=== PATIENT | female | born 1980 | race Caucasian/White ===

== ENCOUNTER 2016-11-23 10:55 | Emergency (ER) | payer BC, OTHER ==
[~2016-11-23] VITALS: Ht 152.4 cm; Wt 63.4 kg
[~2016-11-23 10:55] MED LIST: ALBU1AER9 INH; HYDR-5688 PO; IBUP-1459 PO
[2016-11-23 10:59] VITALS: TEMP 36.9; Ht 152.4 cm; Wt 63.4 kg
[2016-11-23] MEDS ORDERED: HYDROmorphone INJ 1 MG/ML SYR IV STA ×3 (11:09→14:25)
[2016-11-23] MEDS ORDERED: KETOROLAC TROMETHAMINE 30 MG/ML VIAL IV STA (11:09)
[2016-11-23] MEDS ORDERED: SODIUM CHLORIDE 0.9% 1000ML 1,000 ML IV STA ×2 (11:09→14:25)
[2016-11-23] MEDS ORDERED: ACETAMINOPHEN 500 MG TAB PO STA (11:09)
--- NOTE | 2016-11-23 11:10 | EMERGENCY ROOM VISIT NOTE ---
History Report prepared by Alexandra: Edwin Velarde Under the Supervision of: Dr. Flor Cuevas M.D. First contact with patient: 11:00 Chief Complaint: ABDOMINAL PAIN Stated Complaint: RT UPPER BELLY PAIN History of Present Illness The patient is a 36 year old female who presents to the Emergency Room with complaints of constant ache like and waxing/waning stabbing RUQ abdominal pain that began last night. She rates her current pain a 6/10 in severity. The patient still has her gallbladder, but she does not have her appendix. The patient is experiencing some nausea, without any vomiting. The patient states that she is currently menstruating. Source of History: patient Onset: last night Position: abdomen (RUQ) Symptom Intensity: 6/10 Quality: ache, stabbing Timing: constant, waxes/wanes Associated Symptoms: + nausea, No vomiting Review of Systems See HPI for pertinent positives & negatives. A total of 10 systems reviewed and were otherwise negative. Past Medical & Surgical Medical Problems: (1) Asthma (2) Migraines Surgical Problems: (1) History of - tubal ligation (2) History of right salpingo-oophorectomy (3) Hx of appendectomy (4) Tonsillectomy Family History Cancer Diabetes mellitus FH: heart disease FH: lung disease Hypertension Social History Smoking Status: Current Every Day Smoker Alcohol Use: none Drug Use: none Marital Status: Housing Status: lives with family Occupation Status: employed Current/Historical Medications Scheduled Albuterol (Proair Hfa), 1-2 PUFFS INH Q4HR PRN Fluticasone Prop/Salmeterol (Advair Diskus 100/50 60 Dose), 1 PUFF INH BID Gabapentin (Gabapentin), 300 MG PO TID Ondasetron Odt (Zofran Odt), 4 MG SL Q6H Allergies Coded Allergies: No Known Allergies (Unverified , 08/12/16) PT Physical Exam Vital Signs Date Time Temp Pulse Resp B/P Pulse Ox O2 Delivery O2 Flow Rate FiO2 11/23/16 15:30 58 16 89/62 98 11/23/16 13:12 64 16 117/64 96 11/23/16 10:59 36.9 73 18 128/80 100 Room Air Physical Exam CONSTITUTIONAL: Moderate painful distress HEENT: No icterus, moist mucous membranes NECK: No meningismus, trachea is midline. CARDIOVASCULAR: Regular rate, normal perfusion RESPIRATORY: Unlabored breathing. Clear to auscultation. GASTROINTESTINAL: Moderate RUQ tenderness GENITOURINARY: No flank tenderness MUSCULOSKELETAL: Full range of motion NEUROLOGIC: No acute gross focal deficits. PSYCHIATRIC: Normal affect SKIN: Normal for ethnicity. Medical Decision & Procedures ER Provider Diagnostic Interpretation: Radiology results are stated below per my review and radiologist interpretation. ABDOMINAL ULTRASOUND, RIGHT UPPER QUADRANT HISTORY: Right upper quadrant tenderness. COMPARISON: Abdominal ultrasound November 02, [address] of the abdomen and pelvis December 04, 2014. FINDINGS: Liver is sonographically normal. There is no biliary ductal dilatation. The gallbladder is normal. No gallstones are identified. The pancreas is within normal limits. There is no right hydronephrosis. IMPRESSION: No significant abnormality identified within the right upper quadrant. Electronically signed by: Brent Bill M.D. 11/23/2016 12:26 PM Dictated Date/Time: 11/23/2016 12:25 PM ABDOMEN AND PELVIS CT WITH IV AND ORAL CONTRAST CT DOSE: 274.63 mGy.cm HISTORY: Right upper quadrant abdominal pain. TECHNIQUE: Multiaxial CT images of the abdomen and pelvis were performed following the use of intravenous and oral contrast. COMPARISON STUDY: Abdomen and pelvis CT 12/04/2014. FINDINGS: The lung bases are clear. No pneumoperitoneum. No pneumatosis. No fractures within the visualized osseous structures. A 3 mm hypodense lesion within the left hepatic lobe. This is too small to characterize. The gallbladder, spleen, adrenal glands, kidneys, and pancreas are unremarkable. No retroperitoneal lymphadenopathy. The bladder, uterus, bilateral adnexa are unremarkable. No significant pelvic free fluid. No bowel wall thickening or obstruction. The appendix is surgically absent. IMPRESSION: No significant abnormality identified within the abdomen or pelvis. Electronically signed by: Reg Brito M.D. 11/23/2016 4:39 PM Dictated Date/Time: 11/23/2016 4:33 PM Laboratory Results 11/23/16 11:15 Red Blood Count 4.79, Mean Corpuscular Volume 90.4, Mean Corpuscular Hemoglobin 32.2, Mean Corpuscular Hemoglobin Concent 35.6, Mean Platelet Volume 8.5, Neutrophils (%) (Auto) 46.4, Lymphocytes (%) (Auto) 45.8, Monocytes (%) (Auto) 5.1, Eosinophils (%) (Auto) 1.9, Basophils (%) (Auto) 0.7, Neutrophils # (Auto) 3.80, Lymphocytes # (Auto) 3.76, Monocytes # (Auto) 0.42, Eosinophils # (Auto) 0.16, Basophils # (Auto) 0.06 11/23/16 11:15 Test 11/23/16 00:00 11/23/16 11:15 Urine Color YELLOW Urine Appearance CLEAR (CLEAR) Urine pH 6.0 (4.5-7.5) Urine Specific [place] 1.025 (1.000-1.030) Urine Protein 2+ (NEG) Urine Glucose (UA) NEG (NEG) Urine Ketones NEG (NEG) Urine Occult Blood 3+ (NEG) Urine Nitrite NEG (NEG) Urine Bilirubin NEG (NEG) Urine Urobilinogen NEG (NEG) Urine Leukocyte Esterase NEG (NEG) Urine RBC >30 /hpf (0-4) Urine WBC >30 /hpf (0-5) Urine Epithelial Cells >30 /lpf (0-5) Urine Bacteria 1+ (NEG) White Blood Count 8.21 K/uL (4.8-10.8) Red Blood Count 4.79 M/uL (4.2-5.4) Hemoglobin 15.4 g/dL (12.0-16.0) Hematocrit 43.3 % (37-47) Mean Corpuscular Volume 90.4 fL (80-100) Mean Corpuscular Hemoglobin 32.2 pg (25-34) Mean Corpuscular Hemoglobin Concent 35.6 g/dl (32-36) Platelet Count 251 K/uL (130-400) Mean Platelet Volume 8.5 fL (7.4-10.4) Neutrophils (%) (Auto) 46.4 % Lymphocytes (%) (Auto) 45.8 % Monocytes (%) (Auto) 5.1 % Eosinophils (%) (Auto) 1.9 % Basophils (%) (Auto) 0.7 % Neutrophils # (Auto) 3.80 K/uL (1.4-6.5) Lymphocytes # (Auto) 3.76 K/uL (1.2-3.4) Monocytes # (Auto) 0.42 K/uL (0.11-0.59) Eosinophils # (Auto) 0.16 K/uL (0-0.5) Basophils # (Auto) 0.06 K/uL (0-0.2) RDW Standard Deviation 45.4 fL (36.4-46.3) RDW Coefficient of Variation 13.6 % (11.5-14.5) Immature Granulocyte % (Auto) 0.1 % Immature Granulocyte # (Auto) 0.01 K/uL (0.00-0.02) Anion Gap 9.0 mmol/L (3-11) Est Creatinine Clear Calc Drug Dose 91.1 ml/min Estimated GFR () 127.0 Estimated GFR (Non- 109.6 BUN/Creatinine Ratio 22.8 (10-20) Calcium Level 8.5 mg/dl (8.5-10.1) Total Bilirubin 0.6 mg/dl (0.2-1) Direct Bilirubin 0.1 mg/dl (0-0.2) Aspartate Amino Transf (AST/SGOT) 11 U/L (15-37) Alanine Aminotransferase (ALT/SGPT) 13 U/L (12-78) Alkaline Phosphatase 47 U/L (45-117) Total Protein 6.5 gm/dl (6.4-8.2) Albumin 3.7 gm/dl (3.4-5.0) Lipase 183 U/L (73-393) Human Chorionic Gonadotropin, Qual NEG (NEG) Labs reviewed by ED physician. Medications Administered Medications (Trade) Dose Ordered Sig/Des Route Start Time Stop Time Status Last Admin Dose Admin Sodium Chloride (Nss 1000ml) 1,000 ml @ 0 mls/hr Q0M STAT IV 11/23/16 11:09 11/23/16 11:12 DC 11/23/16 11:28 999 MLS/HR Ketorolac Tromethamine (Toradol Inj) 30 mg NOW STAT IV 11/23/16 11:09 11/23/16 11:12 DC 11/23/16 11:27 30 MG Hydromorphone HCl 1 mg 1 mg PRN STAT IV 11/23/16 11:09 11/23/16 11:12 DC 11/23/16 11:27 1 MG Sodium Chloride (Nss 1000ml) 1,000 ml @ 0 mls/hr Q0M STAT IV 11/23/16 14:25 11/23/16 14:27 DC 11/23/16 14:32 999 MLS/HR Hydromorphone HCl (Dilaudid Inj) 1 mg STK-MED ONCE .ROUTE 11/23/16 14:25 11/23/16 14:26 DC 11/23/16 14:30 1 MG Albuterol Sulfate (Ventolin 0.083% 2.5MG/3ML Neb) 2.5 mg STK-MED ONCE INH 11/23/16 14:51 11/23/16 14:52 DC 11/23/16 14:54 2.5 MG Ondansetron HCl (Zofran Inj) 4 mg STK-MED ONCE .ROUTE 11/23/16 16:01 11/23/16 16:02 DC 11/23/16 16:04 4 MG ED Course 1100: Past medical records reviewed. The patient was evaluated in room C9. A complete history and physical examination was performed. 1109: Dilaudid Inj 1 mg IV, Toradol Inj 30 mg IV, Sodium Chloride 1000 ml @ 0 mls/hr Wide Open IV, Tylenol 1000 mg PO 1415: Upon reexamination the patient is resting. I discussed results and treatment plan with the patient. She verbalizes agreement and understanding. The patient is ready for discharge. 1425: The patient has changed her mind and does not want to go home anymore. She was scheduled for a CT scan. Dilaudid Inj 1 mg .ROUTE, Dilaudid Inj 1 mg IV , Sodium Chloride 1000 ml @ 0 mls/hr Wide Open IV, Dilaudid Inj 1 mg IV 1451: Albuterol Sulfate 2.5 mg INH 1601: Zofran Inj 4 mg .ROUTE 1655: Upon reexamination the patient is resting. She would like to come home. She declines further observation. I discussed results and treatment plan with the patient. She verbalizes agreement and understanding. The patient is ready for discharge. Medical Decision Differential diagnoses include but are not limited to; biliary/liver disease. 36-year-old presents into the emergency room for several hours of moderate to severe right upper quadrant tenderness without other associated complaints. She denies any previous history of pain related to eating. Moderate quadrant tenderness on exam subsequent right upper quadrant ultrasound was normal as well as labs. She continued to complain of pain and therefore was given repeat doses of opiates and as well as a CT scan of the abdomen and pelvis. All these results were within normal limits and on reexamination at 5 PM patient appeared comfortable with mild right upper quadrant tenderness no rib tenderness. She was offered observation for continued pain and declined but agrees to return the emergency room for any worsening or worrisome symptoms. She states she has a primary doctor and also declined help facilitating a follow-up appointment. Impression Primary Impression: RUQ abdominal pain Scribe Attestation The scribe's documentation has been prepared under my direction and personally reviewed by me in its entirety. I confirm that the note above accurately reflects all work, treatment, procedures, and medical decision making performed by me. Departure Information Dispostion Home / Self-Care Prescriptions Ondasetron Odt (ZOFRAN ODT) 4 Mg Tab 4 MG SL Q6H for Nausea, #20 TAB Prov: Flor Cuevas MD 11/23/16 Referrals Johnny Tamayo III, M.D. (PCP) Forms Call Back Authorization, HOME CARE DOCUMENTATION FORM, IMPORTANT VISIT INFORMATION, My [facility] Patient Instructions A Signature Page, ED Abd Pain Unkn Cause Fem
[2016-11-23] MEDS ORDERED: ADVIN10/60 INH (11:18)
[2016-11-23] MEDS ORDERED: GABA1CAP4 PO (11:18)
[2016-11-23 11:29] LABS: BASO % 0.7 %; BASO ABS # 0.06 K/uL (0-0.2); COMPLETE YES; EOS % 1.9 %; HEMATOCRIT 43.3 % (37-47); IG% 0.1 %; LYMPH % 45.8 %; LYMPH ABS # 3.76 K/uL (1.2-3.4); MEAN CELL VOLUME 90.4 fL (80-100); MEAN CORPUSCULAR HEMOGLOBIN 32.2 pg (25-34); MEAN CORPUSCULAR HGB CONC 35.6 g/dl (32-36); MEAN PLATELET VOLUME 8.5 fL (7.4-10.4); MONO % 5.1 %; NEUT % 46.4 %; PLATELET COUNT 251 K/uL (130-400); RED BLOOD COUNT 4.79 M/uL (4.2-5.4); WHITE BLOOD COUNT 8.21 K/uL (4.8-10.8)
[2016-11-23 11:36] LABS: MANUAL MICROSCOPIC REQUIRED? YES; URINE APPEARANCE CLEAR (CLEAR); URINE BILIRUBIN NEG (NEG); URINE COLOR YELLOW; URINE NITRITE NEG (NEG); UROBILINOGEN NEG (NEG)
[2016-11-23 11:39] LABS: REVIEW REQ? YES
[2016-11-23 11:41] LABS: SULFASALICYLIC ACID POS (NEG); URINE SPECIFIC GRAVITY 1.025 (1.000-1.030)
[2016-11-23 11:42] LABS: URINE RBC >30 /hpf (0-4)
[2016-11-23 11:43] LABS: URINE BACTERIA 1+ (NEG); URINE WBC >30 /hpf (0-5)
[2016-11-23 11:51] LABS: BUN/CREATININE RATIO 22.8 (10-20); CALCIUM 8.5 mg/dl (8.5-10.1); CREATININE 0.71 mg/dl (0.60-1.20); POTASSIUM 3.9 mmol/L (3.5-5.1); PREG INTERNAL NEGATIVE QC NEG CLEAR BACKGROUND; PREG INTERNAL POSITIVE QC POS CONTROL LINE
--- NOTE | 2016-11-23 12:28 | DIAGNOSTIC IMAGING REPORT ---
ABDOMINAL ULTRASOUND, RIGHT UPPER QUADRANT HISTORY: Right upper quadrant tenderness. COMPARISON: Abdominal ultrasound November 02, [address] of the abdomen and pelvis December 04, 2014. FINDINGS: Liver is sonographically normal. There is no biliary ductal dilatation. The gallbladder is normal. No gallstones are identified. The pancreas is within normal limits. There is no right hydronephrosis. IMPRESSION: No significant abnormality identified within the right upper quadrant. Electronically signed by: Brent Bill M.D. 11/23/2016 12:26 PM Dictated Date/Time: 11/23/2016 12:25 PM
[2016-11-23] MEDS ORDERED: ONDA4TAB10 SL (14:10)
[2016-11-23] MEDS ORDERED: HYDROmorphone INJ 1 MG/ML SYR ONE (14:25)
[2016-11-23] MEDS ORDERED: OPTIRAY 320 IV PRN (14:30)
[2016-11-23] MEDS ORDERED: ALBUTEROL 0.083% NEBU SOLN 3 ML VIAL INH ONE (14:51)
[2016-11-23] MEDS ORDERED: ONDANSETRON INJ 2 MG/ML 2 ML VIAL ONE (16:01)
--- NOTE | 2016-11-23 16:41 | DIAGNOSTIC IMAGING REPORT ---
ABDOMEN AND PELVIS CT WITH IV AND ORAL CONTRAST CT DOSE: 274.63 mGy.cm HISTORY: Right upper quadrant abdominal pain. TECHNIQUE: Multiaxial CT images of the abdomen and pelvis were performed following the use of intravenous and oral contrast. COMPARISON STUDY: Abdomen and pelvis CT 12/04/2014. FINDINGS: The lung bases are clear. No pneumoperitoneum. No pneumatosis. No fractures within the visualized osseous structures. A 3 mm hypodense lesion within the left hepatic lobe. This is too small to characterize. The gallbladder, spleen, adrenal glands, kidneys, and pancreas are unremarkable. No retroperitoneal lymphadenopathy. The bladder, uterus, bilateral adnexa are unremarkable. No significant pelvic free fluid. No bowel wall thickening or obstruction. The appendix is surgically absent. IMPRESSION: No significant abnormality identified within the abdomen or pelvis. Electronically signed by: Rge Brito M.D. 11/23/2016 4:39 PM Dictated Date/Time: 11/23/2016 4:33 PM
[2016-11-23 17:00] VITALS: BP 113/77; PULSE 71; O2SAT 98
== END 2016-11-23 17:20 | disposition home or self-care (01) ==
LOC: C.EDB 10:56 → C.EDC 17:20
DX: R10.11 Right upper quadrant pain (principal); J45.909 Unspecified asthma, uncomplicated; Z98.51 Tubal ligation status; Z90.89 Acquired absence of other organs; Z98.890 Other specified postprocedural states; Z83.3 Family history of diabetes mellitus; Z82.49 Family history of ischemic heart disease and other diseases of the circulatory system; Z80.9 Family history of malignant neoplasm, unspecified; F17.200 Nicotine dependence, unspecified, uncomplicated

== ENCOUNTER 2017-11-30 13:03 | Emergency (ER) | payer BC, OTHER ==
[~2017-11-30] VITALS: Ht 152.4 cm; Wt 76.0 kg
[~2017-11-30 13:03] MED LIST changes: +ADVIN10/60 INH; +GABA1CAP4 PO; -HYDR-5688 PO; -IBUP-1459 PO
[2017-11-30 13:12] VITALS: TEMP 37; Ht 152.4 cm; Wt 76.0 kg
[2017-11-30] MEDS ORDERED: ALBUT/IPRATROP 3MG/0.5MG NEB 3 ML VIAL INH STA ×3 (14:24→15:45)
[2017-11-30] MEDS ORDERED: METHYLPREDNISOLONE 125 MG VIAL IV STA (14:24)
[2017-11-30] MEDS ORDERED: VNTHFA/IN INH (14:33)
[2017-11-30 14:47] VITALS: O2SAT 100
[2017-11-30 14:54] LABS: BASO % 0.6 %; BASO ABS # 0.05 K/uL (0-0.2); EOS % 1.3 %; EOS ABS # 0.12 K/uL (0-0.5); HEMATOCRIT 41.1 % (37-47); HEMOGLOBIN 14.2 g/dL (12.0-16.0); IG# 0.02 K/uL (0.00-0.02); LYMPH % 32.7 %; LYMPH ABS # 2.91 K/uL (1.2-3.4); MEAN CORPUSCULAR HEMOGLOBIN 32.1 pg (25-34); MEAN CORPUSCULAR HGB CONC 34.5 g/dl (32-36); MEAN PLATELET VOLUME 8.4 fL (7.4-10.4); MONO % 7.5 %; MONO ABS # 0.67 K/uL (0.11-0.59); NEUT % 57.7 %; NEUT ABS # 5.14 K/uL (1.4-6.5); PLATELET COUNT 214 K/uL (130-400); RED CELL DISTRIBUTION WIDTH CV 14.3 % (11.5-14.5); RED CELL DISTRIBUTION WIDTH SD 48.3 fL (36.4-46.3); WHITE BLOOD COUNT 8.91 K/uL (4.8-10.8)
[2017-11-30 15:11] LABS: CALCIUM 8.2 mg/dl (8.5-10.1); CREATININE 0.8 mg/dl (0.60-1.20)
[2017-11-30] MEDS ORDERED: BENZONATATE 100MG CAP PO ONE (15:30)
[2017-11-30 16:01] VITALS: BP 103/69; PULSE 76; O2SAT 97
--- NOTE | 2017-11-30 16:16 | EMERGENCY ROOM VISIT NOTE ---
History Report prepared by Alexandra: Joaquin Washington Under the Supervision of: Dr. Brown Shaw M.D. First contact with patient: 14:17 Chief Complaint: RESPIRATORY PROBLEMS Stated Complaint: ASTHMA,CHEST HURTS Nursing Triage Summary: pt to the ED c/o trouble breathing and chest pain since last night + cough that is nonproductive no resp distress History of Present Illness The patient is a 37 year old female who presents to the Emergency Room with complaints of persistent shortness of breath starting last night. The patient notes that she has a history of asthma, and she states that this feels similar to her asthma exacerbations in the past. The patient states that she is having a stabbing pain in her chest worsened with deep inspiration. The patient notes that she has been taking her nebulizers, and she states that she has never been intubated for her asthma, though she was in the ICU for it 5-6 years ago. The patient denies any fevers or chills, and hemoptysis. She states that she has been coughing up mucous, though it has gotten less productive throughout the day. She denies any recent steroid use recently, and she denies any chance of . Source of History: patient Onset: last night Position: other (global) Quality: other (shortness of breath) Timing: other (persistent) Associated Symptoms: + cough, + chest pain, No fevers, No chills Review of Systems See HPI for pertinent positives and negatives. A total of ten systems were reviewed and were otherwise negative. Past Medical & Surgical Medical Problems: (1) Asthma (2) Migraines Surgical Problems: (1) History of - tubal ligation (2) History of right salpingo-oophorectomy (3) Hx of appendectomy (4) Tonsillectomy Family History Cancer Diabetes mellitus FH: heart disease FH: lung disease Hypertension Social History Smoking Status: Current Every Day Smoker Alcohol Use: none Drug Use: none Marital Status: Housing Status: lives with family Occupation Status: employed Current/Historical Medications Scheduled Gabapentin (Gabapentin), 300 MG PO TID Prednisone (Prednisone), 50 MG PO DAILY Scheduled PRN Albuterol (Ventolin Hfa), 2 PUFFS INH QID PRN for Shortness of Breath Albuterol Hfa (Ventolin Hfa), 2-4 PUFFS INH Q6H PRN for SOB/Wheezing Allergies Coded Allergies: No Known Allergies (Unverified , 11/30/17) PT Physical Exam Vital Signs Date Time Temp Pulse Resp B/P (MAP) Pulse Ox O2 Delivery O2 Flow Rate FiO2 11/30/17 16:01 76 20 103/69 97 Room Air 11/30/17 15:15 89 11/30/17 14:47 100 Room Air 11/30/17 14:47 100 Room Air 11/30/17 14:46 70 16 118/69 100 Room Air 11/30/17 13:12 37.0 84 16 124/75 96 Physical Exam GENERAL: Awake, alert, well-appearing, in no distress HENT: Normocephalic, Atraumatic. no hemotympanum bilaterally, barrientos sign negative bilaterally. Oropharynx unremarkable. EYES: Normal conjunctiva. Sclera non-icteric. PERRL bilaterally. EOMI bilaterally. NECK: Supple. No nuchal rigidity. FROM. No JVD. No C-spine tenderness. RESPIRATORY: Diffuse expiratory wheezes bilaterally. CARDIAC: Regular rate, normal rhythm. Extremities warm and well perfused. Equal palpable radial pulses to the bilateral upper extremities. Equal palpable DP pulses to the bilateral lower extremities. ABDOMEN: Soft, non-distended. No tenderness to palpation. No rebound or guarding. No masses. Rovsig Negative. RECTAL: Deferred. MUSCULOSKELETAL: Chest examination reveals no tenderness. The back is symmetrical on inspection without obvious abnormality. There is no CVA tenderness to palpation. No joint edema. LOWER EXTREMITIES: Calves are equal size bilaterally and non-tender. No edema. No discoloration. NEURO: Normal sensorium. No sensory or motor deficits noted. No pronator drift. No facial droop. No dysarthria. SKIN: No rash or jaundice noted. Medical Decision & Procedures Laboratory Results 11/30/17 14:43 Red Blood Count 4.42, Mean Corpuscular Volume 93.0, Mean Corpuscular Hemoglobin 32.1, Mean Corpuscular Hemoglobin Concent 34.5, Mean Platelet Volume 8.4, Neutrophils (%) (Auto) 57.7, Lymphocytes (%) (Auto) 32.7, Monocytes (%) (Auto) 7.5, Eosinophils (%) (Auto) 1.3, Basophils (%) (Auto) 0.6, Neutrophils # (Auto) 5.14, Lymphocytes # (Auto) 2.91, Monocytes # (Auto) 0.67, Eosinophils # (Auto) 0.12, Basophils # (Auto) 0.05 11/30/17 14:43 Test 11/30/17 14:43 White Blood Count 8.91 K/uL (4.8-10.8) Red Blood Count 4.42 M/uL (4.2-5.4) Hemoglobin 14.2 g/dL (12.0-16.0) Hematocrit 41.1 % (37-47) Mean Corpuscular Volume 93.0 fL (80-100) Mean Corpuscular Hemoglobin 32.1 pg (25-34) Mean Corpuscular Hemoglobin Concent 34.5 g/dl (32-36) Platelet Count 214 K/uL (130-400) Mean Platelet Volume 8.4 fL (7.4-10.4) Neutrophils (%) (Auto) 57.7 % Lymphocytes (%) (Auto) 32.7 % Monocytes (%) (Auto) 7.5 % Eosinophils (%) (Auto) 1.3 % Basophils (%) (Auto) 0.6 % Neutrophils # (Auto) 5.14 K/uL (1.4-6.5) Lymphocytes # (Auto) 2.91 K/uL (1.2-3.4) Monocytes # (Auto) 0.67 K/uL (0.11-0.59) Eosinophils # (Auto) 0.12 K/uL (0-0.5) Basophils # (Auto) 0.05 K/uL (0-0.2) RDW Standard Deviation 48.3 fL (36.4-46.3) RDW Coefficient of Variation 14.3 % (11.5-14.5) Immature Granulocyte % (Auto) 0.2 % Immature Granulocyte # (Auto) 0.02 K/uL (0.00-0.02) Anion Gap 5.0 mmol/L (3-11) Est Creatinine Clear Calc Drug Dose 87.7 ml/min Estimated GFR () 109.2 Estimated GFR (Non- 94.2 BUN/Creatinine Ratio 11.2 (10-20) Calcium Level 8.2 mg/dl (8.5-10.1) Laboratory results reviewed by me Medications Administered Medications (Trade) Dose Ordered Sig/Des Route Start Time Stop Time Status Last Admin Dose Admin Albuterol/ Ipratropium (Duoneb) 3 ml ONE STAT INH 11/30/17 14:24 11/30/17 14:30 DC 11/30/17 14:43 3 ML Methylprednisolone Sodium Succinate (Solu-Medrol IV) 125 mg NOW STAT IV 11/30/17 14:24 11/30/17 14:30 DC 11/30/17 14:43 125 MG Albuterol/ Ipratropium (Duoneb) 3 ml ONE STAT INH 11/30/17 15:45 11/30/17 15:49 DC 11/30/17 15:57 3 ML ECG Indication: SOB/dyspnea Rate (beats per minute): 74 Rhythm: sinus rhythm Findings: no acute ischemic change, no ectopy, other ([place], QRS, and QTc intervals within normal limits. No ST elevation or depressions.) ED Course 1417: The patient was evaluated in room B9. A complete history and physical exam was performed. 1424: Solu-Medrol 125mg IV, DuoNeb 3ml INH 1514: Pre-DuoNeb peak flow was 180, and post-DuoNeb her peak flow was 270. I reevaluated the patient, and her wheezing has improved, though her cough is getting worse. She is going to get another treatment, and then she will be reevaluated again. 1545: DuoNeb 3ml INH 1616: I reevaluated the patient, and her vital signs are stable, and she received her second DuoNeb treatment. She states that she is feeling completely better and has to go home since her children are starting to act up. I discussed her labs with her and they are within normal limits. I offered to get a chest x-ray to the patient, but she states that she cannot wait for it. She currently is has having equal breath sounds bilaterally and scant wheezing bilaterally. The patient was discharged with a refill prescription of her albuterol inhaler and prednisone. She asked for cough syrup with codeine for her cough, and I told her that I was unable to prescribe this at this time due to the potential for narcotic abuse and dependency. She seemed upset with this and said that he previous times that she has been here she has gotten this prescription. I stated that I cant write this prescription for her, and she will be given albuterol and prednisone. I offered a prescription for Tessalon Perles, but she declined. Medical Decision Pre-DuoNeb peak flow was 180, and post-DuoNeb her peak flow was 270. I reevaluated the patient, and her wheezing has improved, though her cough is getting worse. She is going to get another treatment, and then she will be reevaluated again. S/p 2nd duoneb I reevaluated the patient, and her vital signs are stable, and she received her second DuoNeb treatment. She states that she is feeling completely better and has to go home since her children are starting to act up. I discussed her labs with her and they are within normal limits. I offered to get a chest x-ray to the patient, but she states that she cannot wait for it. She currently is has having equal breath sounds bilaterally and scant wheezing bilaterally. The patient was discharged with a refill prescription of her albuterol inhaler and prednisone. She asked for cough syrup with codeine for her cough, and I told her that I was unable to prescribe this at this time due to the potential for narcotic abuse and dependency. She seemed upset with this and said that he previous times that she has been here she has gotten this prescription. I stated that I cant write this prescription for her , and she will be given albuterol and prednisone. I offered a prescription for Tessalon Perles, but she declined. Medication Reconcilliation Current Medication List: was personally reviewed by me Blood Pressure Screening Patient's blood pressure: Normal blood pressure Impression Primary Impression: Asthma exacerbation Scribe Attestation The scribe's documentation has been prepared under my direction and personally reviewed by me in its entirety. I confirm that the note above accurately reflects all work, treatment, procedures, and medical decision making performed by me. The chart was completed utilizing [employer] Speech voice recognition software. Grammatical errors, random word insertions, pronoun errors, and incomplete sentences are an occasional consequence of this system due to software limitations, ambient noise, and hardware issues. Any formal questions or concerns about the content, text, or information contained within the body of this dictation should be directly addressed to the physician for clarification. Departure Information Dispostion Home / Self-Care Prescriptions Prednisone (Prednisone) 50 Mg Tab 50 MG PO DAILY for 5 Days, #5 TAB Prov: Brown Shaw M.D. 11/30/17 Albuterol (Ventolin Hfa) 60 Puffs/5400 Mcg Aers 2 PUFFS INH QID Y for Shortness of Breath for 5 Days, #1 INHALER Prov: Brown Shaw M.D. 11/30/17 Referrals Johnny Tamayo III, M.D. (PCP) Forms HOME CARE DOCUMENTATION FORM, IMPORTANT VISIT INFORMATION, WORK / SCHOOL INSTRUCTIONS Patient Instructions Asthma - [facility], [facility] Problem Qualifiers Primary Impression: Asthma exacerbation Asthma severity: moderate Asthma persistence: unspecified Qualified Codes: J45.901 - Unspecified asthma with (acute) exacerbation
[2017-11-30] MEDS ORDERED: PRED50TA PO (16:20)
[2017-11-30] MEDS ORDERED: PRVHFAIN INH (16:20)
== END 2017-11-30 16:30 | disposition home or self-care (01) ==
LOC: C.EDB 13:04
DX: J45.901 Unspecified asthma with (acute) exacerbation (principal); G43.909 Migraine, unspecified, not intractable, without status migrainosus; Z80.9 Family history of malignant neoplasm, unspecified; Z83.3 Family history of diabetes mellitus; Z82.49 Family history of ischemic heart disease and other diseases of the circulatory system; Z83.6 Family history of other diseases of the respiratory system; F17.210 Nicotine dependence, cigarettes, uncomplicated; Z79.899 Other long term (current) drug therapy

== ENCOUNTER 2021-03-16 19:41 | Observation (INO) ==
[2021-03-16] MEDS ORDERED: methylPREDNISolone 125 MG/2 ML VIAL IV STA (19:55)
[2021-03-16] MEDS ORDERED: ALBUT/IPRATROP 3MG/0.5MG NEB 3 ML VIAL NEB ONE (19:55)
[2021-03-16] MEDS ORDERED: SODIUM CHLORIDE 0.9% 1000ML 1,000 ML IV ONE (19:55)
--- NOTE | 2021-03-16 20:14 | XRay Report ---
XR chest 1V portable HISTORY: 40 years-old Female sob acute shortness of breath COMPARISON: Chest radiographs 04/06/2016 TECHNIQUE: Portable AP view of the chest FINDINGS: Cardiomediastinal and hilar silhouettes are within normal limits. No pneumothorax, pleural effusion, airspace consolidation or overt pulmonary edema. Bones of the chest appear grossly intact. IMPRESSION: No acute process. ACT 112: Negative or not required by law. The above report was generated using voice recognition software. It may contain grammatical, syntax o r spelling errors. Electronically signed by: Valentino Mayo M.D. 03/16/2021 8:13 PM
[2021-03-16 20:20] LABS: Basophils # (auto) 0.04 K/uL (0-0.2); Basophils % (auto) 0.4 %; Eosinophils # (auto) 0.19 K/uL (0-0.5); Eosinophils % (auto) 1.7 %; Hematocrit (blood only) 43.7 % (37-47); Hemoglobin 15.7 g/dL (12.0-16.0); Immature Granulocytes # (auto) 0.03 K/uL (0.00-0.02); Immature Granulocytes % (auto) 0.3 %; Lymphocytes # (auto) 3.72 K/uL (1.2-3.4); Lymphocytes % (auto) 32.6 %; Mean Corpuscular Hemoglobin 33.8 pg (25-34); Mean Corpuscular Hgb Conc 35.9 g/dL (32-36); Mean Platelet Volume 8.3 fL (7.4-10.4); Monocytes # (auto) 0.79 K/uL (0.11-0.59); Monocytes % (auto) 6.9 %; Neutrophils # (auto) 6.65 K/uL (1.4-6.5); Neutrophils % (auto) 58.1 %; Platelet Count 343 K/uL (130-400); RDW Coefficient of Variation 13.5 % (11.5-14.5); RDW Standard Deviation 46.4 fL (36.4-46.3); Red Blood Count 4.65 M/uL (4.2-5.4); White Blood Count 11.42 K/uL (4.8-10.8)
[2021-03-16 20:36] LABS: BUN Creatinine Ratio 12.3 (10-20); Calcium 8.3 mg/dl (8.5-10.1); Creatinine Clr Calc Pharmacy 97.1 ml/min; Est GFR (African American) 111.9; Est GFR (Non-African American) 96.6; Potassium 3.5 mmol/L (3.5-5.1)
[2021-03-16 20:55] LABS: Influenza A virus by PCR Negative (Neg); Influenza B virus by PCR Negative (Neg); RSV by PCR Negative (Neg); SARS CoV2 RNA(COVID-19) InHosp NEGATIVE (Negative)
--- NOTE | 2021-03-17 00:37 | Emergency Department Note ---
History of Present Illness General Chief Complaint: Asthma Stated Complaint: ASTHMA, SOB Time Seen by Provider: 03/16/21 19:49 History of Present Illness Provider complaint: "asthma attack", shortness of breath and wheezing Onset (ago): week(s) 1 Severity: severe and worse than usual Associated symptoms: productive cough Treatments Prior to Arrival: inhaled bronchodilator and none (Oral steroid) 40-year-old female presents emergency department for difficulty breathing. Patient reports she feels like she is having asthma attack. Patient states she has a long history of asthma. Patient does report that she has been admitted to the ICU for her asthma in the past. Patient denies needing intubation in the past for asthma. Patient has any fever. She denies any hemoptysis. Patient d oes report cough. Patient states she has been trying to deal with the steroid over the last week. Patient states she saw her PCP was placed on a prednisone taper but that did not help so her PCP started her back on prednisone again. She states that has not been helping and her home inhalers have not been helping. Home Medications Medication Instructions Recorded Confirmed Type albuterol sulfate 2 - 4 puff INHALATION Q4H PRN 03/16/21 03/16/21 History fluticasone propion-salmeterol 1 inh INHALATION BID 03/16/21 03/16/21 History [Advair Diskus] ibuprofen 800 mg PO Q6H PRN 03/16/21 03/16/21 History ipratropium-albuterol 3 ml INHALATION Q4H PRN 03/16/21 03/16/21 History ipratropium-albuterol [Combivent 1 puff INHALATION QID 03/16/21 03/16/21 History Respimat] montelukast 10 mg PO PM 03/16/21 03/16/21 History tiotropium bromide [Spiriva with 1 cap INHALATION PM 03/16/21 03/16/21 History HandiHaler] Allergies Allergy/AdvReac Type Severity Reaction Status Date / Time No Known Allergies Allergy Unverified 03/16/21 21:11 Past Med/Surg History Medical History (Updated 03/17/21 @ 00:38 by [facility]) Acute asthma exacerbation Migraine No pertinent family history Surgical History (Updated 03/17/21 @ 00:31 by [facility]) No pertinent past surgical history Social History (System 05/01/20 @ 09:04 by Autumn Watt) Smoking Status: Never smoker Preferred Language: Bengali Feels Safe at Home: Yes Review of Systems A total of 10 systems reviewed and were otherwise negative Physical Exam Vital Signs Vital Signs - 24 hr 03/16/21 19:41 03/16/21 19:44 03/16/21 20:17 Temperature 36.8 C 36.4 C L Temperature Source Oral Temporal Artery Scan Pulse Rate 100 H 98 H Pulse Rate [Left Radial] 88 Pulse Rate from SpO2 Sensor Pulse Rhythm Regular Pulse Rhythm [Left Radial] Pulse Strength [Left Radial] Respiratory Rate 20 20 28 H Respiratory Effort / Characteristics Non-Labored Spontaneous Short of Breath Respiratory Depth Normal Normal Respiratory Pattern Regular Blood Pressure 134/86 Blood Pressure Mean 102 Blood Pressure Position Sitting Pulse Oximetry 99 97 109 H Oxygen Delivery Method Nebulizer Room Air Room Air Fraction of Inspired Oxygen 95 Sepsis Recent Fever Within 48 Hours No Sepsis New/Unexplained Change in Mental Status No Sepsis Action Taken by Nursing No Action Required 03/16/21 20:34 03/16/21 20:40 03/16/21 20:50 Temperature Temperature Source Pulse Rate 99 H 90 96 H Pulse Rate [Left Radial] Pulse Rate from SpO2 Sensor 98 H 89 98 H Pulse Rhythm Pulse Rhythm [Left Radial] Pulse Strength [Left Radial] Respiratory Rate 23 23 17 Respiratory Effort / Characteristics Respiratory Depth Respiratory Pattern Blood Pressure Blood Pressure Mean Blood Pressure Position Pulse Oximetry 100 99 99 Oxygen Delivery Method Fraction of Inspired Oxygen Sepsis Recent Fever Within 48 Hours Sepsis New/Unexplained Change in Mental Status Sepsis Action Taken by Nursing 03/16/21 21:00 03/16/21 21:03 03/16/21 21:10 Temperature Temperature Source Pulse Rate 93 H 86 Pulse Rate [Left Radial] Pulse Rate from SpO2 Sensor 93 H 89 Pulse Rhythm Pulse Rhythm [Left Radial] Pulse Strength [Left Radial] Respiratory Rate 20 26 H Respiratory Effort / Characteristics Respiratory Depth Respiratory Pattern Blood Pressure Blood Pressure Mean Blood Pressure Position Pulse Oximetry 99 99 99 Oxygen Delivery Method Nebulizer Fraction of Inspired Oxygen Sepsis Recent Fever Within 48 Hours Sepsis New/Unexplained Change in Mental Status Sepsis Action Taken by Nursing 03/16/21 21:20 03/16/21 21:30 03/16/21 21:40 Temperature Temperature Source Pulse Rate 87 88 83 Pulse Rate [Left Radial] Pulse Rate from SpO2 Sensor 88 87 84 Pulse Rhythm Pulse Rhythm [Left Radial] Pulse Strength [Left Radial] Respiratory Rate 22 17 19 Respiratory Effort / Characteristics Respiratory Depth Respiratory Pattern Blood Pressure 144/84 H Blood Pressure Mean 104 Blood Pressure Position Pulse Oximetry 100 100 99 Oxygen Delivery Method Fraction of Inspired Oxygen Sepsis Recent Fever Within 48 Hours Sepsis New/Unexplained Change in Mental Status Sepsis Action Taken by Nursing 03/16/21 21:50 03/16/21 22:00 03/17/21 00:08 Temperature Temperature Source Pulse Rate 89 81 Pulse Rate [Left Radial] 81 Pulse Rate from SpO2 Sensor 90 79 Pulse Rhythm Pulse Rhythm [Left Radial] Regular Pulse Strength [Left Radial] Normal Respiratory Rate 19 18 20 Respiratory Effort / Characteristics Non-Labored Respiratory Depth Normal Respiratory Pattern Regular Blood Pressure 105/61 Blood Pressure Mean 75 Blood Pressure Position Pulse Oximetry 96 94 94 Oxygen Delivery Method Room Air Room Air Fraction of Inspired Oxygen Sepsis Recent Fever Within 48 Hours Sepsis New/Unexplained Change in Mental Status Sepsis Action Taken by Nursing Physical Exam HENT: Exam performed. -Head: Normocephalic and atraumatic. -Right Ear: External ear normal. No mastoid tenderness. -Left Ear: External ear normal. No mastoid tenderness. -Mouth/Throat: The oropharynx is clear and moist. No trismus in the jaw. No dental abscesses or uvula swelling. No oropharyngeal exudate or tonsillar abscesses. EYES: Conjunctivae and EOM are normal. Pupils are equal, round, and reactive to light. Right eye exhibits no discharge. Left eye exhibits no discharge. No scleral icterus. NECK: Normal range of motion. Neck supple. No JVD present. No spinous process tenderness present. No carotid bruit present. No rigidity. No tracheal deviation and normal range of motion present. No Brudzinski's sign and no Kernig's sign noted. CV: Tachycardic rate, regular rhythm, normal heart sounds and intact distal pulses. There is no peripheral edema. Palpable radial pulses bue. PULM/CHEST: Tachypneic. Diminished breath sounds bilaterally bilateral expiratory wheezes. ABD: The abdomen is soft. Bowel sounds are normal. She has no distension. No mass is present. There is no tenderness. There is no rebound, no guarding, no Sotelo's sign and no tenderness at McBurney's point. Rovsig negative MUSC/SKEL: Normal range of motion. There is no peripheral edema, tenderness or deformity. LYMPH: No cervical adenopathy. NEURO: She is alert and oriented to person, place, and time. She has normal strength. No cranial nerve deficit or sensory deficit. Coordination and gait normal. GCS eye subscore is 4. GCS verbal subscore is 5. GCS motor subscore is 6. Cerebellar tests wnl. SKIN: Skin is warm and dry. She is not diaphoretic. PSYCH: She has a normal mood and affect. Behavior is normal. Judgment and t hought content normal. Course Course 1948: The patient was evaluated in room C7. A complete history and physical exam was performed Cardiac monitoring: An order was placed for continuous cardiac monitoring. The monitor shows a rate of 110 with sinus tachycardia rhythm Patient will be started on continuous DuoNeb treatment hour-long and will receive Solu-Medrol 125 mg 2200: Vital signs stable. On reassessment the patient's breathing has improved and she is no longer wheezing. Labs are within normal limits. Imaging is within normal limits. Covid negative. Given the patient's history of needing ICU admission and her history of not tolerating prednisone taper well, the patient will be admitted for status asthmaticus. Case discussed with Dr. Dinah Mcintosh who will evaluate the patient for admission Administered Medications Discontinued Medications Albuterol (Albut/Ipratrop 3mg/0.5mg Neb 3 Ml Vial) 12 ml NEB ONE ONE Stop: 03/16/21 19:56 Last Admin: 03/16/21 20:15 Dose: 12 ml Documented by: [id number] Sodium Chloride (Nss 1000ml) 1,000 mls @ 999 mls/hr IV .Q1H1M ONE Stop: 03/16/21 20:55 Last Infusion: 03/16/21 21:49 Dose: 0 mls/hr Documented by: [id number] Admin: 03/16/21 20:19 Dose: 999 mls/hr Documented by: [id number] Methylprednisolone (Methylprednisolone 125 Mg/2 Ml Vial) 125 mg IV NOW STA Stop: 03/16/21 19:56 Last Admin: 03/16/21 20:19 Dose: 125 mg Documented by: [id number] Medical Decision Making Laboratory Data Result diagrams: 03/16/21 20:05 03/16/21 20:05 Lab Results 03/16/21 03/16/21 03/16/21 Range/Units 19:55 19:55 20:05 WBC 11.42 H (4.8-10.8) K/uL RBC 4.65 (4.2-5.4) M/uL Hgb 15.7 (12.0-16.0) g/dL Hct 43.7 (37-47) % MCV 94.0 (80-100) fL MCH 33.8 (25-34) pg MCHC 35.9 (32-36) g/dL RDW Std Deviation 46.4 H (36.4-46.3) fL RDW Coeff of Mary Ann 13.5 (11.5-14.5) % Plt Count 343 (130-400) K/uL MPV 8.3 (7.4-10.4) fL Immature Gran % (Auto) 0.3 % Neut % (Auto) 58.1 % Lymph % (Auto) 32.6 % Appling % (Auto) 6.9 % Eos % (Auto) 1.7 % Baso % (Auto) 0.4 % Neut # (Auto) 6.65 H (1.4-6.5) K/uL Lymph # (Auto) 3.72 H (1.2-3.4) K/uL Appling # (Auto) 0.79 H (0.11-0.59) K/uL Eos # (Auto) 0.19 (0-0.5) K/uL Baso # (Auto) 0.04 (0-0.2) K/uL Immature Gran # (Auto) 0.03 H (0.00-0.02) K/uL Sodium (136-145) mmol/L Potassium (3.5-5.1) mmol/L Chloride (98-107) mmol/L Carbon Dioxide (21-32) mmol/L Anion Gap (3-11) BUN (7-18) mg/dl Creatinine (0.6-1.2) mg/dl Est Cr Clr Drug Dosing ml/min Est GFR ( Amer) Est GFR (Non-Af Amer) BUN/Creatinine Ratio (10-20) Glucose (70-99) mg/dl Calcium (8.5-10.1) mg/dl COVID-19 Eval Order CovFluRsv at [facility] SARS-CoV-2 (PCR) NEGATIVE (Negative) Influenza Type A (PCR) Negative (Neg) Influenza Type B (PCR) Negative (Neg) RSV (RT-PCR) Negative (Neg) 03/16/21 Range/Units 20:05 WBC (4.8-10.8) K/uL RBC (4.2-5.4) M/uL Hgb (12.0-16.0) g/dL Hct (37-47) % MCV (80-100) fL MCH (25-34) pg MCHC (32-36) g/dL RDW Std Deviation (36.4-46.3) fL RDW Coeff of Mary Ann (11.5-14.5) % Plt Count (130-400) K/uL MPV (7.4-10.4) fL Immature Gran % (Auto) % Neut % (Auto) % Lymph % (Auto) % Appling % (Auto) % Eos % (Auto) % Baso % (Auto) % Neut # (Auto) (1.4-6.5) K/uL Lymph # (Auto) (1.2-3.4) K/uL Appling # (Auto) (0.11-0.59) K/uL Eos # (Auto) (0-0.5) K/uL Baso # (Auto) (0-0.2) K/uL Immature Gran # (Auto) (0.00-0.02) K/uL Sodium 139 (136-145) mmol/L Potassium 3.5 (3.5-5.1) mmol/L Chloride 112 H (98-107) mmol/L Carbon Dioxide 21 (21-32) mmol/L Anion Gap 7.0 (3-11) BUN 9 (7-18) mg/dl Creatinine 0.77 (0.6-1.2) mg/dl Est Cr Clr Drug Dosing 97.1 ml/min Est GFR ( Amer) 111.9 Est GFR (Non-Af Amer) 96.6 BUN/Creatinine Ratio 12.3 (10-20) Glucose 83 (70-99) mg/dl Calcium 8.3 L (8.5-10.1) mg/dl COVID-19 Eval Order SARS-CoV-2 (PCR) (Negative) Influenza Type A (PCR) (Neg) Influenza Type B (PCR) (Neg) RSV (RT-PCR) (Neg) Imaging Data Radiologist's Impression: Chest X-Ray 03/16/21 19:55 XR chest 1V portable HISTORY: 40 years-old Female sob acute shortness of breath COMPARISON: Chest radiographs 04/06/2016 TECHNIQUE: Portable AP view of the chest FINDINGS: Cardiomediastinal and hilar silhouettes are within normal limits. No pneumothorax, pleural effusion, airspace consolidation or overt pulmonary edema. Bones of the chest appear grossly intact. IMPRESSION: No acute process. ACT 112: Negative or not required by law. The above report was generated using voice recognition software. It may contain grammatical, syntax or spelling errors. Electronically signed by: Valentino Mayo M.D. 03/16/2021 8:13 PM ECG Data Indication: SOB/dyspnea Rate (beats per minute): 97 Rhythm: normal sinus Findings: no ST depression, no ST elevation and no prolonged QT MDM Narrative 1949: The patient was evaluated in room C7. A complete history and physical exam was performed Cardiac monitoring: An order was placed for continuous cardiac monitoring. The monitor shows a rate of 110 with sinus tachycardia rhythm Patient will be started on continuous DuoNeb treatment hour-long and will receive Solu-Medrol 125 mg 2200: Vital signs stable. On reassessment the patient's breathing has improved and she is no longer wheezing. Labs are within normal limits. Imaging is within normal limits. Covid negative. Given the patient's history of needing ICU admission and her history of not tolerating prednisone taper well, the patient will be admitted for status asthmaticus. Case discussed with Dr. Dinah Mcintosh who will evaluate the patient for admission Impression & Plan Asthma exacerbation Discharge Plan Visit Data Chief Complaint: Asthma Stated Complaint: ASTHMA, SOB ED Provider: [facility] Discharge Problem: Asthma exacerbation Patient Disposition: Admitted As Inpatient Forms Stand Alone Forms: [facility] Prescriptions Prescriptions: No Action ipratropium-albuterol 0.5 mg-3 mg(2.5 mg base)/3 mL solution for nebulization 3 ml INHALATION Q4H PRN (Reason: sob) RF: 0 fluticasone propion-salmeterol [Advair Diskus] 500-50 mcg/dose blister with device 1 inh INHALATION BID RF: 0 ibuprofen 200 mg Tablet 800 mg PO Q6H PRN (Reason: Pain) RF: 0 montelukast 10 mg tablet 10 mg PO PM RF: 0 albuterol sulfate 90 mcg/actuation HFA aerosol inhaler 2 - 4 puff INHALATION Q4H PRN (Reason: SOB) RF: 0 Spiriva with HandiHaler 18 mcg capsule, w/inhalation device 1 cap INHALATION PM RF: 0 Combivent Respimat 20-100 mcg/actuation mist 1 puff INHALATION QID RF: 0 Referrals Referrals: Johnny Tamayo MD [Primary Care Provider] - Discharge Problem: Asthma exacerbation Qualifiers: Asthma severity: severe Asthma persistence: persistent Qualified Code(s): J45.51 - Severe persistent asthma with (acute) exacerbation
[2021-03-17] MEDS ORDERED: ALBUTEROL HFA 8 GM INHALER INH PRN (01:08)
[2021-03-17] MEDS ORDERED: POLYETHYLENE (MIRALAX) 17 GM PACK PO PRN (01:08)
[2021-03-17] MEDS ORDERED: ACETAMINOPHEN 325 MG TAB PO PRN (01:08)
[2021-03-17] MEDS ORDERED: ALBUT/IPRATROP 3MG/0.5MG NEB 3 ML VIAL INH PRN (01:08)
[2021-03-17] MEDS ORDERED: ONDANSETRON INJ 2 MG/ML 2 ML VIAL IV PRN (01:08)
[2021-03-17] MEDS ORDERED: NITROGLYCERIN SL 0.4 MG/TAB TAB SL PRN (01:08)
[2021-03-17] MEDS: DOXYCYCLINE HYCLATE 100 MG CAP PO SCH ×2 (01:55→08:27)
--- NOTE | 2021-03-17 03:16 | History and Physical Report ---
DATE OF ADMISSION: 03/16/2021 CHIEF COMPLAINT: Shortness of breath. HISTORY OF PRESENT ILLNESS: This is a 40-year-old female with past medical history significant for asthma moderate persistent; history of bacterial pneumonia; history of carpal tunnel syndrome, bilateral; history of migraines; history of depression and anxiety. Comes with shortness of breath. The patient says her asthma is acting up since last 2-3 weeks. She was treated with prednisone taper, but again it got worse and today again she was restarted on prednisone and a couple of days ago she was started on cefdinir, but as she was not getting better, she came to the ER. In the ER, she received IV Solu-Medrol and also hour long nebs treatment and was called for admission. Currently, the patient is resting comfortably and hemodynamically stable. She feels fine now. Denies any chest pain. She gets coughing spells. When she gets coughs, she gets short of breath. She could not sleep for the last few days. No fever, no chills, no nausea, no abdominal pain, no headache, no blurred vision, no earache, no runny nose, no sore throat. Normal bowel and bladder movements. No rash. No swelling in the legs. ALLERGIES: No known drug allergies. PAST MEDICAL HISTORY: As mentioned above. PAST SURGICAL HISTORY: Colonoscopy, cystoscopy, EGD, ligation of oviducts, appendectomy, removal of ovaries, tonsillectomy, bilateral wrist arthroscopy. MEDICATIONS: The patient is on albuterol 2 puffs q. 4 hours p.r.n., Advair Diskus one inhalation b.i.d., ibuprofen 800 mg p.o. q. 6 hours p.r.n., DuoNebs every 4 hours p.r.n., Respimat 1 inhalation q.i.d., montelukast 10 mg p.o. a.m., Spiriva inhaler 1 capsule inhalation daily. FAMILY HISTORY: Significant for aunt has arthritis; father has COPD, bowel and stomach cancer; mother has migraines, fibromyalgia; maternal grandfather had prostate cancer; paternal grandfather had prostate and colon cancer; paternal grandmother has diabetes and hypertension. SOCIAL HISTORY: . Former smoker, quit in 2020. Smoked half pack a day for 25 years, seems to be currently smoking 0-5 cigarettes a day. No alcohol use, no drug use. REVIEW OF SYSTEMS: As per HPI. Rest of review of systems negative. PHYSICAL EXAMINATION: GENERAL: The patient is obese, not in acute distress. VITAL SIGNS: Temperature 36.4, pulse 81, respiratory rate 18, blood pressure 144/84, oxygen 94% on room air. HEENT: Pupils equal, round, reactive to light. Oral mucosa moist. NECK: No JVD, no neck masses. CARDIOVASCULAR: S1, S2 heard, regular rate and rhythm, no murmur, no gallop. RESPIRATORY SYSTEM: Normal AP diameter. No accessory muscle use. Diminished breath sounds. Occasional wheezing. ABDOMEN: Soft, bowel sounds present, nontender. No distention. CENTRAL NERVOUS SYSTEM: Cranial nerves II-XII grossly intact. Nonfocal. EXTREMITIES: No edema, no erythema. LABORATORY DATA: WBC 11.4, hemoglobin 15.7, hematocrit 43.7, platelets 343. Sodium 139, potassium 3.5, chloride 112, bicarbonate 21, BUN 9, creatinine 0.7, serum glucose 83, calcium 8.3. SARS-CoV-2 PCR negative. Influenza A and B PCR negative, RSV PCR negative. IMAGING DATA: Chest x-ray, no acute findings. EKG: Normal sinus rhythm at a rate of 187, no significant change was found. ASSESSMENT AND PLAN: This is a 40-year-old female who presents with asthma exacerbation. 1. History of moderate persistent asthma who comes with asthma exacerbation going on for the last 2-3 weeks. Failed outpatient treatment. No obvious infiltrate on chest x-ray. Will continue with IV Solu-Medrol 40 t.i.d., nebs around the clock and p.r.n., and p.o. doxycycline and monitor in the [facility]. Currently feeling fine. continue Advair Diskus. 2. Deep venous thrombosis prophylaxis: Heparin subQ. DISPOSITION: Admit to [facility]. Expect to discharge home and follow with family doctor. THOMAS
[2021-03-17] MEDS ORDERED: HEPARIN SOD 5,000 UNIT/0.5 ML VIAL SQ SCH ×2 (06:00→09:00)
[2021-03-17] MEDS ORDERED: Nursing to Pharmacy Communication SCH (06:30)
[2021-03-17] MEDS: ALBUT/IPRATROP 3MG/0.5MG NEB 3 ML VIAL NEB SCH ×2 (07:20→10:15)
[2021-03-17] MEDS ORDERED: methylPREDNISolone 40 MG in SYRINGE 0 ML IV SCH (09:00)
[2021-03-17] MEDS ORDERED: FLUTICASONE/VILANTEROL 200/25MCG 14 PUFFS/INHALER INH SCH (09:00)
--- NOTE | 2021-03-17 09:20 | Discharge Summary ---
Date of Service March 17, 2021 Admission HPI Per Admitting Provider 40-year-old female with past medical history significant for asthma moderate persistent; history of bacterial pneumonia; history of carpal tunnel syndrome, bilateral; history of migraines; history of depression and anxiety. Comes with shortness of breath. The patient says her asthma is acting up since last 2-3 weeks. She was treated with prednisone taper, but again it got worse and today again she was restarted on prednisone and a couple of days ago she was started on cefdinir, but as she was not getting better, she came to the ER. In the ER, she received IV Solu-Medrol and also hour long nebs treatment and was called for admission. Currently, the patient is resting comfortably and hemodynamically stable. She feels fine now. Denies any chest pain. She gets coughing spells. When she gets coughs, she gets short of breath. She could not sleep for the last few days. No fever, no chills, no nausea, no abdominal pain, no headache, no blurred vision, no earache, no runny nose, no sore throat. Normal bowel and bladder movements. No rash. No swelling in the legs. Admission Exam Per Admitting Provider GENERAL: The patient is obese, not in acute distress. VITAL SIGNS: Temperature 36.4, pulse 81, respiratory rate 18, blood pressure 144/84, oxygen 94% on room air. HEENT: Pupils equal, round, reactive to light. Oral mucosa moist. NECK: No JVD, no neck masses. CARDIOVASCULAR: S1, S2 heard, regular rate and rhythm, no murmur, no gallop. RESPIRATORY SYSTEM: Normal AP diameter. No accessory muscle use. Diminished breath sounds. Occasional wheezing. ABDOMEN: Soft, bowel sounds present, nontender. No distention. CENTRAL NERVOUS SYSTEM: Cranial nerves II-XII grossly intact. Nonfocal. EXTREMITIES: No edema, no erythema. Principal Diagnosis Moderate persistent asthma Discharge Exam ROS-No Headache, No Visual Changes, No Nausea, No Vomiting, No Fever, No Chills, No Neck Pain or Stiffness, No Chest Pain, No Palpitations, No SOB, No LEE, No Cough, No Sputum, No Wheezing, No Abdominal Pain, No Diarrhea, No Hematemesis, No Hemoptysis, No Unexpected Weight Loss, No Flank pain, No Melena, No Hematochezia, No Frequency, No Urgency, No Burning, No Hematuria, No Rashes, No Diaphoresis. Appetite is Normal Physical Exam Gen-AAO x 3, NAD, Afebrile Head-NCAT, EOMI, PERRLA, Anicteric Sclera, No Posterior Pharyngeal Erythema Neck-Supple, No JVD, No Thyromegaly, No Masses, No LAD, No Bruits Lungs-Clear to Auscultation Bilaterally, No Rales, No Rhonchi, No Wheezing, No Crepitus Chest-No S4, +S1, +S2, No S3, No Murmurs, No Rubs, No Gallops, No Ectopy Abdomen-Soft, Bowel Sounds Present, Non Tender, Non Distended, No Hepatomegaly, No Splenomegaly, No Palpable Masses, No Rebound, No Rigidity, No Guarding Musculoskeletal-Full Range of Motion Bilaterally, No CVAT Extremities-No Cyanosis, No Clubbing, No Edema Nuero-Cranial Nerves II-XII grossly intact, Motor WNL, DTRs WNL, Strength WNL, Non Focal Psych-Normal Mood Discharge Data Allergies Allergy/AdvReac Type Severity Reaction Status Date / Time No Known Allergies Allergy Unverified 03/16/21 21:11 Consultations 03/16/21 22:02 ED Decision to Admit Stat Allergies No Known Allergies Allergy (Unverified 03/16/21 21:11) Height/Weight/Isolation Height 5 ft Weight 90 kg Chemistry 03/16/21 20:05 Sodium 139 Potassium 3.5 Chloride 112 H Carbon Dioxide 21 Anion Gap 7.0 BUN 9 Creatinine 0.77 Glucose 83 Hospital Course (1) Asthma exacerbation: Feels much better so will DC on Pred Taper. Got better a lot quicker than expected Total Time Total Time Spent Total Time Spent (In Minutes): 45 mins Total Time Includes: Examination of the Patient, Discharge Planning, Medication Reconciliation and Communication With Other Providers Discharge Plan Discharge Items Patient Disposition: Home - Self-Care Reason For Visit: SOB Discharge Diagnosis: Moderate persistent asthma Condition on Discharge: Good Health Concerns: Recurrence Activity: Resume your previous activity Lifting: Gradually increase as tolerated Bathing: No limitations Sexual Activity: When tolerated Exercise/Sports: Gradually increase as tolerated Driving/Machine Use: No limitations Weightbearing: Full weightbearing Non-emergency contact: Primary Care Provider Call non-emergency contact if: you have any medication questions Follow-up/Referrals: Johnny Tamayo MD [Primary Care Provider] - Diet: Regular Addtl Attending Provider Instructions: None Pending Studies at Discharge: No Stand-Alone Forms: [facility] [employer], Smoking Cessation Medications and DC Order Prescriptions: New prednisone 10 mg tablet 10 mg PO DAILY Qty: 21 RF: 0 Continued ipratropium-albuterol 0.5 mg-3 mg(2.5 mg base)/3 mL solution for nebulization 3 ml INHALATION Q4H PRN (Reason: sob) RF: 0 fluticasone propion-salmeterol [Advair Diskus] 500-50 mcg/dose blister with d evice 1 inh INHALATION BID RF: 0 ibuprofen 200 mg Tablet 800 mg PO Q6H PRN (Reason: Pain) RF: 0 montelukast 10 mg tablet 10 mg PO PM RF: 0 albuterol sulfate 90 mcg/actuation HFA aerosol inhaler 2 - 4 puff INHALATION Q4H PRN (Reason: SOB) RF: 0 Spiriva with HandiHaler 18 mcg capsule, w/inhalation device 1 cap INHALATION PM RF: 0 Combivent Respimat 20-100 mcg/actuation mist 1 puff INHALATION QID RF: 0 Discharge Orders: Discharge Order (Routine); Ordered 03/17/21 Ordered By: Yariel Singletary Admission Data Admit Date/Time: 03/16/21 23:57 Attending Provider: Yariel Singletary Admit Provider: Josh Nix Primary Care Provider: Johnny Tamayo Other Providers: Josh Nix
[2021-03-17] MEDS ORDERED: MONTELUKAST SODIUM 10 MG TABLET PO SCH (21:00)
--- NOTE | 2021-03-18 21:01 | Electrocardiogram Report ---
Test Reason : Blood Pressure : / mmHG Vent. Rate : 097 BPM Atrial Rate : 097 BPM P-R Int : 158 ms QRS Dur : 076 ms QT Int : 350 ms P-R-T Axes : 045 020 044 degrees QTc Int : 444 ms Poor data quality, interpretation may be adversely affected Normal sinus rhythm Normal ECG When compared with ECG of 30-NOV-2017 14:39, No significant change was found Confirmed by Chuck Dooley ([id number]) on 03/18/2021 9:01:08 PM Referred By: REFERRED SELF Confirmed By:Chuck Dooley
== END 2021-03-17 11:15 | disposition home or self-care (01) ==
LOC: ED 19:41 → 2W 23:57 → INTOOBSV 23:57 → 2W 03-17 00:40